=== PATIENT | male | born 1985 | race Caucasian/White ===

== ENCOUNTER 2017-07-23 10:26 | Emergency (ER) | payer OTHER ==
[~2017-07-23] VITALS: Ht 180.3 cm; Wt 136.1 kg
[2017-07-23 10:29] VITALS: Ht 180.3 cm; Wt 136.1 kg
[2017-07-23 12:20] VITALS: BP 125/69
== END 2017-07-23 12:20 | disposition home or self-care (01) ==
LOC: ED 10:26
DX: R00.2 Palpitations (principal); E78.00 Pure hypercholesterolemia, unspecified